=== PATIENT | male | born 1950 | race Caucasian/White ===

== ENCOUNTER 2017-05-29 07:44 | Emergency (ER) | payer OTHER ==
[2017-05-29 07:53] VITALS: BP 138/83
[2017-05-29 13:00] LABS: Hematocrit 44 % (42-52); Hemoglobin 14.9 g/dl (14.0-18.0); Mean Corpuscular HGB Conc 34 g/dl (31-36); Mean Corpuscular Hemoglobin 30 pg (27-31); Mean Corpuscular Volume 89 fL (80-94); Mean Platelet Volume 8 um3 (7.4-10.4); Red Blood Count 4.97 10^6/ul (4.0-5.4); Red Cell Distribution Width 13 % (10.5-15); White Blood Count 11.9 10^3/ul (3.5-10.8)
--- NOTE | 2017-05-29 13:33 | UC ---
Camden Proctor Alfonso, scribed for Van Vargas MD on 05/29/17 at 0820 . HPI Febrile Illness - HPI Summary HPI Summary: This patient is a 66 year old male presenting to [facility] c/o febrile illness since 5 days ago. He rates the pain 5/10 in severity. Sx aggravated and alleviated by nothing. Reports low grade fevers and aches. Denies diaphoresis, urinary symptoms, coughing, wheezing, rhinorrhea, swollen joint, rash, swelling, vomiting, and diarrhea. Reports playing golf 5 days ago. Denies sick contacts or recent travel. Denies recent dental procedures and surgeries. PMHx of HLD. - History of Current Complaint Chief Complaint: UCGeneralIllness Time Seen by Provider: 05/29/17 08:05 Hx Obtained From: Patient Onset/Duration: Started Days Ago - 5 days ago Timing: Constant Initial Severity: Moderate Current Severity: Moderate Pain Intensity: 5 Pain Scale Used: 0-10 Numeric Aggravating Factors: Nothing Alleviating Factors: Nothing Associated Signs and Symptoms: Other: - Reports low grade fevers and aches. Denies diaphoresis, urinary symptoms, respiratory, coughing, wheezing, rhinorrhea, swollen joint, rash, swelling, vomiting, and diarrhea. - Allergy/Home Medications Allergies/Adverse Reactions: Allergies Allergy/AdvReac Type Severity Reaction Status Date / Time No Known Allergies Allergy Verified 01/13/13 07:40 PMH/Surg Hx/FS Hx/Imm Hx Cardiovascular History: Reports: Hx Valvular Heart Disease - mitral valve prolapse wore monitor no treatment GI History: Reports: Hx Gastroesophageal Reflux Disease - meds prn usually qod Sensory History: Reports: Hx Contacts or Glasses - glasses inst day of or Denies: Hx Hearing Aid Opthamlomology History: Reports: Hx Contacts or Glasses - glasses inst day of or - Surgical History Surgery Procedure, Year, and Place: 1959 tonsilectomy [facility]. 1970 wisdom teeth off, hernia inguinal bilat repair Hx Anesthesia Reactions: No Infectious Disease History: No Infectious Disease History: Denies: Hx Clostridium Difficile, Hx Hepatitis, Hx Human Immunodeficiency Virus (HIV), Hx of Known/Suspected MRSA, Hx Shingles, Hx Tuberculosis, Hx Known/ Suspected VRE, Hx Known/Suspected VRSA, History Other Infectious Disease, Traveled Outside the [place] in Last 30 Days - Family History Known Family History: Positive: Other - Cancer father - Social History Alcohol Use: Rare Substance Use Type: Reports: None Smoking Status (MU): Never Smoked Tobacco Review of Systems Constitutional: Fever, Other - Positive aches; negative diaphoresis Skin: Other - Negative rash, swelling Respiratory: Other - Negative cough, wheezing, rhinorrhea Gastrointestinal: Other - Negative vomiting and diarrhea Genitourinary: Negative Motor: Other - Negative swollen joint All Other Systems Reviewed And Are Negative: Yes Physical Exam Triage Information Reviewed: Yes Vital Signs: Initial Vital Signs Temp 98 F 05/29/17 07:49 Pulse 72 05/29/17 07:49 Resp 18 05/29/17 07:49 BP 138/83 05/29/17 07:49 Pulse Ox 98 05/29/17 07:49 Vital Signs Reviewed: Yes - Additional Comments The patient is well-nourished in no acute distress and in no acute pain. The skin is warm and dry and skin color reflects adequate perfusion. No rash noted. HEENT: The head is normocephalic and atraumatic. The pupils are equal and reactive. The conjunctivae are clear and without drainage. Nares are patent and without drainage. Mouth reveals moist mucous membranes and the throat is without erythema and exudate. The external ears are intact. The ear canals are patent and without drainage. The tympanic membranes are intact. Neck is supple with full range of motion and non-tender. There are no carotid bruits. There is no neck vein distension. No adenopathy. Respiratory: Chest is non-tender. Lungs are clear to auscultation and breath sounds are symmetrical and equal. Cardiovascular: Heart is regular rate and rhythm. There is no murmur or rub auscultated. There is no peripheral edema and pulses are symmetrical and equal. Abdomen: The abdomen is obese. Musculoskeletal: There is no back pain noted. Extremities are non-tender with full range of motion. There is good capillary refill. There is no peripheral edema or calf tenderness elicited. Neurological: Patient is alert and oriented to person, place and time. Psychiatric: The patient has an appropriate affect and does not exhibit any anxiety or depression. Course/Dx - Course Course Of Treatment: A 66-year-old M presents to [facility] with a CC of febrile illness since 5 days ago. Pt reports low grade fevers and aches. Denies diaphoresis, urinary symptoms, coughing, wheezing, rhinorrhea, swollen joint, rash, swelling, vomiting, and diarrhea. Pt will be discharged home with Doxycycline and follow up with PCP. Pt is agreeable with this plan. - Febrile Illness Differential Diagnoses: Fever of Unknown Origin, Other: - lyme's disease, febrile illness - Diagnoses Clinic Provider Diagnoses: lyme's disease Discharge - Discharge Plan Condition: Stable Disposition: HOME Prescriptions: DOXYcycline CAP(*) [DOXYcycline 100MG CAP(*)] 100 mg PO BID #28 cap Patient Education Materials: Lyme Disease (ED), Fever in Adults (ED) Referrals: Reyes Villanueva MD [Primary Care Provider] - 1 Week The documentation as recorded by the Camden paniagua Alfonso accurately reflects the service I personally performed and the decisions made by , Van Vargas MD.
[2017-05-29 14:16] LABS: Erythrocyte Sed Rate 34 mm/Hr (0-40)
--- NOTE | 2017-05-30 16:51 | UC ---
Progress - Progress Note Progress Note: PLS NOTIFY PT - LYME NEGATIVE. CBC SLIGHTLY ELEVATED WBC LIKELY REACTIVE DUE TO ACUTE CONDITION. CRP ELEVATED. THIS IS A GENERALIZED MARKER OF INFLAMMATION. CONTINUE CURRENT MGMT AND FOLLOW-UP PCP ADVISED. - SMITA ALAN MD
== END 2017-05-29 08:35 | disposition home or self-care (01) ==
LOC: UCEAST 07:44
DX: R50.9 Fever, unspecified (principal); D72.829 Elevated white blood cell count, unspecified; R79.82 Elevated C-reactive protein (CRP); K21.9 Gastro-esophageal reflux disease without esophagitis
CPT/HCPCS: 36415; 85025; 85652; 86140; 86618; 99212; G0463

== ENCOUNTER 2018-04-07 06:26 | Inpatient (IN) | payer OTHER ==
--- NOTE | 2018-04-02 14:14 | HP ---
PREOPERATIVE HISTORY AND PHYSICAL: DATE OF ADMISSION: 04/07/18. PROVIDER: Rekha Gardner MD.* (DICTATED BY [facility]) CHIEF COMPLAINT: Left hip pain. HISTORY OF PRESENT ILLNESS: Mr. Hudson is a 67-year-old gentleman who has had increasingly worsening left hip pain over several months. It is an aching pain in his groin and thigh. It is worse with prolonged ambulation standing and stair- climbing. He has tried physical therapy, antiinflammatories, and rest without relief of pain. He is interested in surgical intervention for correction of the problem. PAST MEDICAL HISTORY: Hypercholesterolemia, osteoarthritis, mitral valve prolapse, and GERD. PAST SURGICAL HISTORY: Hernia repair, tonsillectomy, wisdom tooth extraction. He reports no complications with anesthesia with those procedures. FAMILY HISTORY: Breast cancer in his mother, hypertension in his mother and father. SOCIAL HISTORY: He lives with his . He works at [employer]. He denies tobacco or recreational drug use. Minimal alcohol use. He is normally very active. He is right hand dominant. He normally ambulates independently. CURRENT MEDICATIONS: 1. Mobic 7.5 mg p.o. daily. 2. Restasis 0.05% eye drops. 3. Ketoconazole 2% cream applied once a day to his scalp. 4. Zantac 75 mg daily. 5. Tamsulosin HCl daily. 6. Rosuvastatin. 7. Calcium 10 mg daily. 8. Multivitamin daily. ALLERGIES: No known drug allergies. REVIEW OF SYSTEMS: Constitutional: Negative for recent hospitalization, fever , chills, night sweats, unexplained weight loss. HEENT: Negative for headache , lightheadedness, changes to his vision or hearing, sore throat, runny nose, cough or cold. Cardiovascular: Negative for chest or arm pain with exertion, history of heart attack, heart murmur, heart palpitations, high blood pressure, embolism or deep vein thrombosis. Respiratory: Negative for chronic cough, shortness of breath with exertion, asthma, or COPD. Gastrointestinal: Negative for nausea, vomiting, diarrhea, constipation. Positive for GERD. Genitourinary: Negative for nighttime urination. Positive for frequent urination. Negative for urinary tract infection or kidney problems. Musculoskeletal: Negative for chronic back or neck pain. Skin: Negative for rashes, lesions, lumps or sores. Neurologic: Negative for seizures, stroke, epilepsy, depression. Endocrine: Negative for diabetes or thyroid problems. Hematology: Negative for easy bleeding, bruising, or anemia. PHYSICAL EXAMINATION GENERAL: He is a well-developed, well-nourished person, in no acute distress. He is alert and oriented x3 with appropriate mood and affect. VITAL SIGNS: The patient is 5 feet 9 inches, 215 pounds, blood pressure 144/84 , pulse of 88. HEENT: Normocephalic, atraumatic. His hearing and vision are grossly intact. NECK: Trachea is midline. RESPIRATORY: Lungs clear to auscultation bilaterally. No wheezes, rales or rhonchi. CARDIOVASCULAR: Regular rate and rhythm. No murmurs, rubs or gallops. Normal S1, S2. ABDOMEN: Soft, nondistended, nontender, normal bowel sounds. GAIT: He ambulates with an antalgic gait favoring the left lower extremity with no abductor alert. EXTREMITIES: Exam of the left lower extremity; skin is intact without abrasions or open wounds. He has no palpable masses or lymph nodes. He has hip flexion to 110 degrees. He has internal rotation to 10 degrees. External rotation to 45 degrees. No instability of the hip. Distally he has 5/5 ankle dorsiflexion, plantarflexion, and strength. Sensation to light touch in all nerve distributions and 2+ dorsalis pedis pulse. DIAGNOSIS STUDIES: Imaging: Multiple views of the left hip are reviewed on the PACS system and shows severe endstage osteoarthritis of the left hip joint. There is [id number] contact superiorly and medially, extensive osteophyte formation, and subchondral sclerosis. IMPRESSION: Left hip osteoarthritis. PLAN: The patient is to undergo left total hip arthroplasty by Dr. Gardner on . The risks, benefits and post-operative course was discussed with the patient at length and he would like to proceed. All of his questions were answered to his full satisfaction. He is understanding to call with any problems or concerns. COMFORT BAEZA [id number]/[facility] #: [id number] [facility]ITAL[facility]
[~2018-04-07 06:26] MED LIST: Buffered Lidocaine 0.9% SYRIN* 5 ML/SYR SYRINGE INTRADERM ONE; Dexamethasone TAB* 4 MG PO ONE; DiMENhydriNATE IV* 50 MG/ML VIAL IV PUSH PRN; Famotidine TAB* 20 MG PO ONE; Gabapentin CAP(*) 300 MG PO ONE; Morphine INJ* 2 MG/ML 1 ML CARPUJECT IV PRN; Naloxone* 0.4 MG/ML 1 ML VIAL IV PRN; Ondansetron INJ* 2 MG/ML VIAL ONE; PROCHLORPERAZINE INJ 5 MG/ML 2 ML VIAL IV PRN; Scopolamine 1.5 mg* PATCH TRANSDERM PRN; oxyCODONE/Acetamin 5/325 MG* TAB PO PRN
--- OUTSIDE RECORDS SUMMARY | 2018-04-07 06:35 | XMS REPORT ---
:1950 External Reference #:[id number] Author Organization [facility] Address [address] [place] [address] Phone [phone] Care Team Providers Name Role Phone Reyes Villanueva MD Care Team Information Life Skills Coordinator Volunteer Unavailable Reyes Villanueva MD Primary Care Physician Unavailable Payers Type Date Identification Numbers Payment Provider Subscriber Health Maintenance Policy Number: [facility] ([facility]) [id number] [employer] Group Number: [id number] [id number] PayID: [id number] [place] [address] Problems Date Description Provider Status Onset: 08/24/2011 Hyperlipidemia Reyes Villanueva M.D. Active Onset: 12/08/2012 Non-neoplastic nevus Reyes Villanueva M.D. Active Onset: 12/08/2012 Benign prostatic hypertrophy Reyes Villanueva M.D. Active without outflow obstruction Onset: 03/24/2018 Arthralgia of the pelvic region and Reyes Villanueva M.D. Active thigh Onset: 06/27/2017 Hemorrhage of rectum and anus Reyes Villanueva M.D. Active Onset: 12/08/2012 Inguinal hernia without obstruction Reyes Villanueva M.D. Inactive AND without gangrene Inactive: 06/27/2017 Onset: 06/05/2015 Arthralgia of the lower leg Reyes Villanueva M.D. Inactive Inactive: 06/27/2017 Onset: 11/27/2015 Mixed hyperlipidemia Reyes Villanueva M.D. Inactive Inactive: 06/27/2017 Onset: 11/27/2015 Gastroesophageal reflux disease Reyes Villanueva M.D. Inactive Inactive: 06/27/2017 Onset: 11/27/2015 Wrist joint pain Reyes Villanueva M.D. Inactive Inactive: 06/27/2017 Onset: 06/06/2017 Lyme disease Reyes Villanueva M.D. Inactive Inactive: 06/27/2017 Family History Date Family Member(s) Problem(s) Comments Father Skin Cancer Mother Arthritis Social History Type Date Description Comments Marital Status Patient is Cigarette Use Never Smoked Cigarettes ETOH Use Rarely consumes alcohol Smoking Patient has never smoked Daily Caffeine Some Caffeine chocolate qod Exercise Type/Frequency Current Does not exercise currently Allergies, Adverse Reactions, Alerts Date Description Reaction Status Severity Comments 08/25/2011 NKDA active 06/06/2017 Mussels nausea, vomitting active Medications Medication Date Status Form Strength Qnty SIG Indications Ordering Provider Rosuvastatin 06/27 Active Tablets 10mg 90tab 1 by mouth Reyes FDevin Calcium s every day Emily Villanueva Zantac 75 Active Tablets 75mg 1 po bid, prn Reyes F. /0000 Emily Villanueva Fish Oil Active Capsules 1000mg 2 by mouth Reyes F. Concentrate / twice a day Emily Villanueva Ketoconazole Active Shampoo 2% apply to Reyes F. /0000 affected Shallish, area, wait M.D. 3-5 min and rinse, use 3x weekly Multi Vitamin Active Tablets 1 by mouth Reyes F. Mens /0000 every day for Shallish, delivery M.DDevin Restasis Active Emulsion 0.05% instill 1 Reyes F. /0000 drop in each Shallish, eye twice a M.D. day Glucosamine Active Capsules 1500Com once daily Unknown Chondroitin / 1500 Complex Tamsulosin HCL Active Capsules 0.4mg 1 by mouth Unknown /0000 every day Meloxicam Active Tablets 7.5mg 1 by mouth Unknown /0000 every day for pain and inflamation take with food. Doxycycline 05/30 Hx Tablets 100mg 1 by mouth Unknown Hycl DR twice a day x - 2 weeks 06/24 Physical 06/05 Hx treatment and Reyes FDevin Therapy /2014 evaluation David Villanueva left knee M.DDevin 10/27 Simvastatin 04/04 Hx Tablets 20mg 90tab 1 by mouth Reyes F. s every day David Villanueva M.D. 06/27 Oracea 12/09 Hx Capsules 40mg Take [address] capsule by Rich, - mouth daily M.D. 02/10 in the morning on an empty stomach for inflammatory lesions of acne rosacea Simvastatin 06/05 Hx Tablets 10mg 90tab take 1 tablet Reyes F. s by mouth at Rich, - bedtime M.D. 04/04 Lovaza 06/07 Hx Capsules 1gm 360ca 2 po bid Reyes F. ps Rich, - M.DDevin 02/10 Azithromycin 11/30 Hx Tablets 250mg 6tabs take 2 Reyes . tablets by Rich, - mouth on day M.D. 03/29 1 then tablet on days 2 through 5 Zithromax 04/19 Hx Tablets 250mg 6Tabs 2 po qd today 466.0 , then 1 po Alexa, - qd times 4 Afnp-C 04/24 Tessalon 04/19 Hx Capsules 200mg 30cap 1 tid prn 466.0 s nathanael Liu, - Charlenenp-C 04/29 Evelyn D 12H 09/26 Hx 30uni 1 po bid prn Reyes . ts David Villanueva M.D. 04/19 Prilosec 09/26 Hx Capsules 20mg 30cap [address] maria dolores Levi, - Afnp-C 04/19 Zantac 03/10 Hx Capsules 75 [facility] 06/27 Of Zocor 11/21 Hx Tablets 10mg 90tab 1 po qhs Reyes F. /2006 s David Villanueva M.D. 06/05 Evelyn 07/21 Hx Capsules 180mg 30cap 1 PO qd Reyes F. /2006 s David Villanueva M.D. 04/19 Nasonex 07/21 Hx 50mcg 1unit 2 Sprays Each Reyes FDevin s Nostril qd David Villanueva M.D. 11/30 Medrol 07/05 Hx 4mg 1unit as Directed Reyes [place] Dosepack /2004 David Brooks M.D. 07/21 Norflex 06/12 Hx Tablets 100mg 30tab 1 PO bid Ruddy ADevin /2004 s David Galicia M.D. 06/22 Naprosyn 06/12 Hx Tablets 500mg 30tab 1 bid With Ruddy ADevin /2004 s David Florez M.D. 07/21 Physical 06/12 Hx Treatment And Ruddy ADevin Therapy /2004 Evaluation David Galicia Low Back Pain Emily 06/24 Physical 02/15 Hx For Low Back Reyes Bridgette Therapy /2001 Pain David Villanueva M.D. 06/12 "Treat Your 02/15 Hx by bill Talbot. Own Back" David Drew M.D. 06/12 Physical 01/05 Hx Treatment And Reyes FDevin Therapy /2001 Evaluation Of David Villanueva M.D. 02/15 Pain /2001 Tylenol #3 11/02 Hx #3 20uni 1 PO Q4H prn Reyes F. /2000 David Toro M.D. 02/15 Motrin 10/28 Hx 800mg 60uni 1 PO tid prn Reyes F. /2000 David Toro M.D. 02/15 Physical 10/28 Hx Treatment And Reyes FDevin Therapy /2000 Evaluation David Villanueva M.D. 10/29 Neck Pain /2000 Evelyn D 12H 00/00 Hx 10uni 1 po bid prn Unknown /0000 ts - 11/30 Meloxicam Hx Tablets 7.5mg Once per day Unknown /0000 - 06/05 Immunizations CPT Code Status Date Vaccine Reaction Lot # [id number] Given 06/27/2017 Pneumococcal Immunization [id number] Given 11/27/2015 Pneumococcal Conjugate Vacc-13 [id number] Given 08/24/2015 Influenza Vac, Quadriv[place], [place] [id number] Given 03/29/2011 Zostivax [id number] Given 03/29/2011 Zostivax jacques [id number] Given 08/08/2010 Tdap Tetanus, W Pertussis [id number] Vital Signs Date Vital Result Comment 03/24/2018 BP Systolic 130 mmHg BP Diastolic 70 mmHg Heart Rate 64 /min Body Temperature 98.7 F Respiratory Rate 16 /min Height 69.50 inches 5'9.50" Weight 214.00 lb BMI (Body Mass Index) 31.1 kg/m2 06/27/2017 BP Systolic 138 mmHg BP Diastolic 78 mmHg Heart Rate 64 /min Body Temperature 99.0 F Height 69.50 inches 5'9.50" Weight 216.50 lb BMI (Body Mass Index) 31.5 kg/m2 06/06/2017 BP Systolic 130 mmHg BP Diastolic 72 mmHg Heart Rate 78 /min Body Temperature 98.6 F Height 68.25 inches 5'8.25" Weight 214.12 lb BMI (Body Mass Index) 32.3 kg/m2 11/27/2015 BP Systolic 124 mmHg BP Diastolic 72 mmHg Heart Rate 76 /min Body Temperature 98.4 F Respiratory Rate 16 /min Height 68.25 inches 5'8.25" Weight 212.00 lb BMI (Body Mass Index) 32.0 kg/m2 10/27/2015 BP Systolic 140 mmHg BP Diastolic 70 mmHg Heart Rate 60 /min Body Temperature 97.4 F Respiratory Rate 12 /min Height 69.5 inches 5'9.50" Weight 215.00 lb BMI (Body Mass Index) 31.3 kg/m2 06/05/2015 BP Systolic 130 mmHg BP Diastolic 60 mmHg Heart Rate 76 /min Body Temperature 97.7 F Respiratory Rate 16 /min Height 69.5 inches 5'9.50" Weight 214.00 lb BMI (Body Mass Index) 31.1 kg/m2 02/10/2015 BP Systolic 142 mmHg BP Diastolic 80 mmHg Heart Rate 74 /min Body Temperature 97.3 F Respiratory Rate 16 /min Height 69.5 inches 5'9.50" Weight 214.00 lb BMI (Body Mass Index) 31.1 kg/m2 04/04/2014 BP Systolic 118 mmHg BP Diastolic 68 mmHg Heart Rate 60 /min Body Temperature 97.5 F Respiratory Rate 16 /min Height 69.5 inches 5'9.50" Weight 208.00 lb BMI (Body Mass Index) 30.3 kg/m2 12/08/2012 BP Systolic 122 mmHg BP Diastolic 62 mmHg Heart Rate 68 /min Body Temperature 98.3 F Respiratory Rate 16 /min Height 69.5 inches 5'9.50" Weight 215.12 lb BMI (Body Mass Index) 31.3 kg/m2 06/07/2011 BP Systolic 140 mmHg BP Diastolic 80 mmHg Heart Rate 80 /min Body Temperature 98.2 F Respiratory Rate 16 /min Height 69.5 inches 5'9.50" Weight 227.00 lb BMI (Body Mass Index) 33.0 kg/m2 03/29/2011 BP Systolic 116 mmHg BP Diastolic 70 mmHg Heart Rate 60 /min Body Temperature 98.7 F Respiratory Rate 16 /min Height 69.5 inches 5'9.50" Weight 224.00 lb BMI (Body Mass Index) 32.6 kg/m2 11/30/2010 BP Systolic 118 mmHg BP Diastolic 60 mmHg Heart Rate 80 /min Body Temperature 97.9 F Height 69.5 inches 5'9.50" Weight 228.00 lb BMI (Body Mass Index) 33.2 kg/m2 07/16/2010 BP Systolic 120 mmHg BP Diastolic 82 mmHg Heart Rate 60 /min Body Temperature 97.9 F Height 69.5 inches 5'9.50" Weight 219.00 lb BMI (Body Mass Index) 31.9 kg/m2 06/27/2009 BP Systolic 124 mmHg BP Diastolic 70 mmHg Heart Rate 68 /min Body Temperature 97.9 F Height 69.5 inches 5'9.50" Weight 213.00 lb BMI (Body Mass Index) 31.0 kg/m2 04/19/2009 BP Systolic 128 mmHg BP Diastolic 70 mmHg Heart Rate 88 /min Body Temperature 98.6 F Weight 211.00 lb 01/23/2009 BP Systolic 140 mmHg BP Diastolic 70 mmHg Heart Rate 72 /min Height 69.5 inches 5'9.50" Weight 212.00 lb BMI (Body Mass Index) 30.9 kg/m2 09/26/2008 BP Systolic 128 mmHg BP Diastolic 60 mmHg Heart Rate 72 /min Body Temperature 98.2 F Height 69.5 inches 5'9.50" Weight 212.00 lb BMI (Body Mass Index) 30.9 kg/m2 03/10/2008 BP Systolic 130 mmHg BP Diastolic 54 mmHg Heart Rate 80 /min Height 69.5 inches 5'9.50" Weight 211.00 lb BMI (Body Mass Index) 30.7 kg/m2 11/05/2007 BP Systolic 124 mmHg BP Diastolic 60 mmHg Heart Rate 80 /min Body Temperature 98.1 F Height 69.5 inches 5'9.50" Weight 211.00 lb BMI (Body Mass Index) 30.7 kg/m2 07/21/2007 BP Systolic 124 mmHg BP Diastolic 70 mmHg Heart Rate 72 /min Body Temperature 98.6 F Height 69.5 inches 5'9.50" Weight 214.00 lb BMI (Body Mass Index) 31.1 kg/m2 07/05/2005 BP Systolic 126 mmHg BP Diastolic 78 mmHg Heart Rate 88 /min Respiratory Rate 15 /min Height 69.5 inches 5'9.50" 06/12/2005 BP Systolic 134 mmHg BP Diastolic 82 mmHg Heart Rate 72 /min Respiratory Rate 16 /min Height 69.5 inches 5'9.50" Weight 208.00 lb BMI (Body Mass Index) 30.3 kg/m2 02/15/2002 BP Systolic 124 mmHg BP Diastolic 74 mmHg Height 69.5 inches 5'9.50" Weight 196.00 lb BMI (Body Mass Index) 28.9 kg/m2 11/02/2001 BP Systolic 120 mmHg BP Diastolic 70 mmHg Height 69.5 inches 5'9.50" Weight 194.00 lb BMI (Body Mass Index) 28.6 kg/m2 10/28/2001 BP Systolic 110 mmHg LG Cuff BP Diastolic 76 mmHg LG Cuff Body Temperature 97.7 F Height 69.5 inches 5'9.50" Weight 195.00 lb BMI (Body Mass Index) 28.8 kg/m2 Results Test Date Test Result H/L Range Note Lipid Profile 08/27/2017 Cholesterol 168 mg/dL 120-200 Triglycerides 55 mg/dL 30-200 HDL Cholesterol 63 mg/dL 30-70 LDL (Calculated) 94 CALC 0-129 VLDL Cholesterol 11 mg/dL 0-50 HDL Risk Factor 2.7 CALC 0.0-4.4 Laboratory test finding 08/27/2017 CK 85 U/L 38-174 1 Comprehensive Metabolic Prof 08/27/2017 Sodium 143 mEq/L 134-149 Potassium 4.4 mEq/L 3.6-5.5 Chloride 106 mEq/L 94-112 Carbon Dioxide 23 mEq/L 21-32 Glucose 109 mg/dL High 70-105 2 BUN 19 mg/dL 6-26 Creatinine 1.0 mg/dL 0.6-1.4 BUN/Creat Ratio 19.0 CALC 8.0-36.0 Calcium 9.5 mg/dL 8.6-10.2 Total Protein 6.5 g/dL 6.4-8.3 Albumin 4.1 g/dL 3.8-5.5 Globulin 2.4 g/dL 2.0-4.8 A/G Ratio 1.7 CALC 0.6-2.3 Alk. Phosphatase 60 U/L 22-95 Alt (SGPT) 17 U/L 7-35 Ast (Sgot) 21 U/L 5-34 Total Bilirubin 0.7 mg/dL 0.2-1.3 GFR Non- >60 ml/min/1.73m^ >=60 GFR >60 ml/min/1.73m^ >=60 Laboratory test finding 08/27/2017 TSH 1.63 mIU/L 0.50-6.00 Ict Hemoccult (a) 08/20/2017 Ict Hemoccult (1) 08/05/17 neg Ict Hemoccult-(2) 08/06/17 neg Ict-Hemoccult (3) 08/07/17 neg Ua - Non Micro (a) 06/27/2017 Appearance clear Color yellow Glucose, Urine (Fma/CMC/CTX) neg Bilirubin neg Ketones neg SP Grav >1.030 Blood neg PH 6.0 Protein neg Urobil 0.2 Nitrite neg Leukocytes (a/[facility]) neg Laboratory test finding 05/29/2017 C Reactive Protein 29.83 mg/L High &lt ; 5.00 3 CBC Auto Diff 05/29/2017 White Blood Count 11.9 10^3/uL High 3.5-10.8 Red Blood Count 4.97 10^6/uL 4.0-5.4 Hemoglobin 14.9 g/dL 14.0-18.0 Hematocrit 44 % 42-52 Mean Corpuscular Volume 89 fL 80-94 Mean Corpuscular Hemoglobin 30 pg 27-31 Mean Corpuscular HGB Conc 34 g/dL 31-36 Red Cell Distribution Width 13 % 10.5-15 Platelet Count 297 10^3/uL 150-450 Mean Platelet Volume 8 um3 7.4-10.4 Abs Neutrophils 8.8 10^3/uL High 1.5-7.7 Abs Lymphocytes 1.4 10^3/uL 1.0-4.8 Abs Monocytes 0.8 10^3/uL 0-0.8 Abs Eosinophils 0.7 10^3/uL High 0-0.6 Abs Basophils 0.1 10^3/uL 0-0.2 Abs Nucleated RBC 0 10^3/uL Granulocyte % 74.3 % 38-83 Lymphocyte % 12.0 % Low 25-47 Monocyte % 6.7 % 1-9 Eosinophil % 5.9 % 0-6 Basophil % 1.1 % 0-2 Nucleated Red Blood Cells % 0 Laboratory test finding 05/29/2017 Erythrocyte Sed Rate 34 mm/Hr 0-40 Lyme Disease Serology Negative Negative 4 Laboratory test finding 03/03/2017 PSA 3.0 ng/mL 0.0-4.0 Complete Blood Count 03/03/2017 WBC 7.4 x10^3/UL 3.6-9.6 RBC 4.93 x10^6/UL 3.90-5.70 HGB 14.9 g/dL 12.1-17.2 HCT 44 % 36-50 MCV 90.0 fL 82.2-97.4 MCH 30.2 pg 27.6-33.3 MCHC 33.6 g/dL 33.0-35.5 RDW 13.7 % 11.6-13.7 PLT 497 x10^3/UL High 150-400 MPV 6.6 fL Low 7.4-10.4 Gran # 5.3 x10^3/UL 1.5-7.2 Lymph# 1.6 x10^3/UL 0.7-4.9 Gilpin# 0.5 x10^3/UL 0.1-0.9 Gran % 69.6 % 42.2-75.2 Lymph % 22.5 % 20.5-51.1 Gilpin% 7.9 % 1.7-9.3 Lipid Profile 03/03/2017 Cholesterol 167 mg/dL 120-200 Triglycerides 123 mg/dL 30-200 HDL Cholesterol 59 mg/dL 30-70 LDL (Calculated) 83 CALC 0-129 VLDL Cholesterol 25 mg/dL 0-50 HDL Risk Factor 2.8 CALC 0.0-4.4 Comprehensive Metabolic Prof 03/03/2017 Sodium 141 mEq/L 134-149 Potassium 4.1 mEq/L 3.6-5.5 Chloride 104 mEq/L 94-112 Carbon Dioxide 28 mEq/L 21-32 Glucose 116 mg/dL High 70-105 5 BUN 12 mg/dL 6-26 Creatinine 0.9 mg/dL 0.6-1.4 BUN/Creat Ratio 13.3 CALC 8.0-36.0 Calcium 8.7 mg/dL 8.6-10.2 Total Protein 6.1 g/dL Low 6.4-8.3 6 Albumin 3.9 g/dL 3.8-5.5 Globulin 2.2 g/dL 2.0-4.8 A/G Ratio 1.8 CALC 0.6-2.3 Alk. Phosphatase 57 U/L 22-95 Alt (SGPT) 21 U/L 7-35 Ast (Sgot) 20 U/L 5-34 Total Bilirubin 0.5 mg/dL 0.2-1.3 GFR Non- >60 ml/min/1.73m^ >=60 GFR >60 ml/min/1.73m^ >=60 Laboratory test finding 02/26/2016 PSA 2.8 ng/mL 0.0-4.0 Ict Hemoccult (Fma) 12/22/2015 Ict Hemoccult (1) 12/13/15 neg Ict Hemoccult-(2) 12/14/15 neg Ict-Hemoccult (3) 12/15/15 neg Lyme AB/Western Blot Reflex 11/27/2015 Lyme IgG/IgM Ab <0.91 ISR 0.00- 0.90 7, 8 Lyme Disease Ab, Quant, IgM <0.80 index 0.00-0.79 7, 9 Rheumatoid Arthritis 11/27/2015 Ra Latex Turbid. 8.8 IU/mL 0.0-13.9 7 Factor ([facility]) Laboratory test finding 11/27/2015 Sed Rate 9mm (Fma/CMC/[facility]) Laboratory test finding 11/27/2015 TSH 1.49 mIU/L 0.50-6.00 CK 85 U/L 38-174 Lipid Profile 11/27/2015 Cholesterol 187 mg/dL 120-200 Triglycerides 96 mg/dL 30-200 HDL Cholesterol 62 mg/dL 30-70 LDL (Calculated) 106 CALC 0-129 VLDL Cholesterol 19 mg/dL 0-50 HDL Risk Factor 3.0 CALC 0.0-4.4 Comprehensive Metabolic Prof 11/27/2015 Sodium 141 mEq/L 134-149 Potassium 4.2 mEq/L 3.6-5.5 Chloride 101 mEq/L 94-112 Carbon Dioxide 26 mEq/L 21-32 Glucose 89 mg/dL 70-105 BUN 21 mg/dL 6-26 Creatinine 1.0 mg/dL 0.6-1.4 BUN/Creat Ratio 21.0 CALC 8.0-36.0 Calcium 9.5 mg/dL 8.6-10.2 Total Protein 6.9 g/dL 6.4-8.3 Albumin 4.2 g/dL 3.8-5.5 Globulin 2.7 g/dL 2.0-4.8 A/G Ratio 1.6 CALC 0.6-2.3 Alk. Phosphatase 56 U/L 22-95 Alt (SGPT) 22 U/L 7-35 Ast (Sgot) 32 U/L 5-34 Total Bilirubin 0.6 mg/dL 0.2-1.3 GFR Non- >60 ml/min/1.73m^ >=60 GFR >60 ml/min/1.73m^ >=60 Complete Blood Count 11/27/2015 WBC 7.9 x10^3/UL 3.6-9.6 RBC 5.05 x10^6/UL 3.90-5.70 HGB 15.6 g/dL 12.1-17.2 HCT 47 % 36-50 MCV 92.0 fL 82.2-97.4 MCH 31.0 pg 27.6-33.3 MCHC 33.6 g/dL 33.0-35.5 RDW 12.9 % 11.6-13.7 PLT 251 x10^3/UL 150-400 MPV 7.0 fL Low 7.4-10.4 Gran # 5.8 x10^3/UL 1.5-7.2 Lymph# 1.7 x10^3/UL 0.7-4.9 Gilpin# 0.4 x10^3/UL 0.1-0.9 Gran % 72.0 % 42.2-75.2 Lymph % 22.2 % 20.5-51.1 Gilpin% 5.8 % 1.7-9.3 Laboratory test finding 11/27/2015 PSA 3.5 ng/mL 0.0-4.0 Lipid Profile 06/19/2015 Cholesterol 174 mg/dL 120-200 Triglycerides 63 mg/dL 30-200 HDL Cholesterol 62 mg/dL 30-70 LDL (Calculated) 99 CALC 0-129 VLDL Cholesterol 13 mg/dL 0-50 HDL Risk Factor 2.8 CALC 0.0-4.4 Comprehensive Metabolic Prof 06/19/2015 Sodium 139 mEq/L 134-149 Potassium 4.2 mEq/L 3.6-5.5 Chloride 102 mEq/L 94-112 Carbon Dioxide 29 mEq/L 21-32 Glucose 112 mg/dL High 70-105 10 BUN 14 mg/dL 6-26 Creatinine 1.0 mg/dL 0.6-1.4 BUN/Creat Ratio 14.0 CALC 8.0-36.0 Calcium 9.4 mg/dL 8.6-10.2 Total Protein 6.4 g/dL 6.4-8.3 Albumin 4.0 g/dL 3.8-5.5 Globulin 2.2 g/dL 2.0-4.8 A/G Ratio 1.7 CALC 0.6-2.3 Alk. Phosphatase 56 U/L 22-95 Alt (SGPT) 18 U/L 7-35 Ast (Sgot) 21 U/L 5-34 Total Bilirubin 0.4 mg/dL 0.2-1.3 Laboratory test finding 06/19/2015 TSH 1.19 mIU/L 0.50-6.00 CK 70 U/L 38-174 Complete Blood Count 06/19/2015 WBC 7.2 x10^3/UL 3.6-9.6 RBC 4.86 x10^6/UL 3.90-5.70 HGB 15.1 g/dL 12.1-17.2 HCT 44 % 36-50 MCV 91.0 fL 82.2-97.4 MCH 31.0 pg 27.6-33.3 MCHC 34.3 g/dL 33.0-35.5 RDW 13.5 % 11.6-13.7 PLT 251 x10^3/UL 150-400 MPV 6.7 fL Low 7.4-10.4 Gran # 5.0 x10^3/UL 1.5-7.2 Lymph# 1.6 x10^3/UL 0.7-4.9 Gilpin# 0.6 x10^3/UL 0.1-0.9 Gran % 68.6 % 42.2-75.2 Lymph % 23.0 % 20.5-51.1 Gilpin% 8.4 % 1.7-9.3 Lipid Profile 02/16/2015 Cholesterol 183 mg/dL 120-200 Triglycerides 78 mg/dL 30-200 HDL Cholesterol 64 mg/dL 30-70 LDL (Calculated) 103 CALC 0-129 VLDL Cholesterol 16 mg/dL 0-50 HDL Risk Factor 2.9 CALC 0.0-4.4 Comprehensive Metabolic Prof 02/16/2015 Sodium 141 mEq/L 134-149 Potassium 4.3 mEq/L 3.6-5.5 Chloride 102 mEq/L 94-112 Carbon Dioxide 31 mEq/L 21-32 Glucose 112 mg/dL High 70-105 BUN 15 mg/dL 6-26 Creatinine 0.9 mg/dL 0.6-1.4 BUN/Creat Ratio 16.7 CALC 8.0-36.0 Calcium 9.0 mg/dL 8.6-10.2 Total Protein 6.6 g/dL 6.4-8.3 Albumin 4.3 g/dL 3.8-5.5 Globulin 2.3 g/dL 2.0-4.8 A/G Ratio 1.9 CALC 0.6-2.3 Alk. Phosphatase 61 U/L 22-95 Alt (SGPT) 27 U/L 7-35 Ast (Sgot) 33 U/L 5-34 Total Bilirubin 0.5 mg/dL 0.2-1.3 Complete Blood Count 02/16/2015 WBC 7.7 x10^3/UL 3.6-9.6 RBC 4.89 x10^6/UL 3.90-5.70 HGB 15.6 g/dL 12.1-17.2 HCT 45 % 36-50 MCV 92.0 fL 82.2-97.4 MCH 31.9 pg 27.6-33.3 MCHC 34.7 g/dL 33.0-35.5 RDW 12.1 % 11.6-13.7 PLT 248 x10^3/UL 150-400 MPV 7.0 fL Low 7.4-10.4 Gran # 5.6 x10^3/UL 1.5-7.2 Lymph# 1.7 x10^3/UL 0.7-4.9 Gilpin# 0.4 x10^3/UL 0.1-0.9 Gran % 70.9 % 42.2-75.2 Lymph % 22.8 % 20.5-51.1 Gilpin% 6.3 % 1.7-9.3 Laboratory test finding 02/16/2015 TSH 1.48 mIU/L 0.50-6.00 11 PSA 2.1 ng/mL 0.0-4.0 Free T4 1.10 ng/dL 0.75-1.54 Laboratory test finding 01/30/2015 PSA 2.2 ng/mL 0.0-4.0 Lipid Profile 06/06/2014 Cholesterol 184 mg/dL 120-200 Triglycerides 52 mg/dL 30-200 HDL Cholesterol 59 mg/dL 30-70 LDL (Calculated) 115 CALC 0-129 VLDL Cholesterol 10 mg/dL 0-50 HDL Risk Factor 3.1 CALC 0.0-4.4 Comprehensive Metabolic Prof 06/06/2014 Sodium 138 mEq/L 134-149 Potassium 4.1 mEq/L 3.6-5.5 Chloride 104 mEq/L 94-112 Carbon Dioxide 24 mEq/L 21-32 Glucose 104 mg/dL 70-105 BUN 18 mg/dL 6-26 Creatinine 1.1 mg/dL 0.6-1.4 BUN/Creat Ratio 16.4 CALC 8.0-36.0 Calcium 9.4 mg/dL 8.6-10.2 Total Protein 6.9 g/dL 6.3-8.1 Albumin 4.3 g/dL 3.8-5.5 Globulin 2.6 g/dL 2.0-4.8 A/G Ratio 1.7 CALC 0.6-2.3 Alk. Phosphatase 65 U/L 22-95 Alt (SGPT) 22 U/L 7-35 Ast (Sgot) 14 U/L 5-34 Total Bilirubin 0.5 mg/dL 0.2-1.3 Laboratory test finding 06/06/2014 TSH 1.62 mIU/L 0.50-6.00 CK 114 U/L 38-174 Complete Blood Count 06/06/2014 WBC 7.6 x10^3/UL 3.6-9.6 RBC 4.87 x10^6/UL 3.90-5.70 HGB 15.3 g/dL 12.1-17.2 HCT 44 % 36-50 MCV 91.0 fL 82.2-97.4 MCH 31.4 pg 27.6-33.3 MCHC 34.6 g/dL 33.0-35.5 RDW 11.7 % 11.6-13.7 PLT 261 x10^3/UL 150-400 MPV 7.3 fL Low 7.4-10.4 Gran # 5.1 x10^3/UL 1.5-7.2 Lymph# 1.9 x10^3/UL 0.7-4.9 Gilpin# 0.6 x10^3/UL 0.1-0.9 Gran % 66.7 % 42.2-75.2 Lymph % 25.2 % 20.5-51.1 Gilpin% 8.1 % 1.7-9.3 Ua - Non Micro (a) 04/04/2014 Appearance CLEAR Color YELLOW Glucose NEG Bilirubin NEG Ketones NEG SP Grav 1.020 Blood NEG PH 5.5 Protein NEG Urobil 0.2 Nitrite NEG Leukocytes (a/[facility]) NEG Lipid Profile 12/15/2013 Cholesterol 188 mg/dL 120-200 HDL 58 mg/dL 30-70 Triglycerides 74 mg/dL 30-200 HDL Risk Factor 3.3 CALC 0.0-4.4 LDL (Calculated) 115 CALC 0-129 VLDL (Calculated) 15 mg/dL 0-50 Comprehensive Metabolic Prof 12/15/2013 Albumin 4.3 g/dL 3.8-5.5 Alk. Phos. 68 U/L 22-95 Alt (SGPT) 25 U/L 10-40 Ast (Sgot) 24 U/L 5-34 BUN 19 mg/dL 6-26 Calcium 9.0 mg/dL 8.6-10.2 Chloride 100 mEq/L 94-112 Creatinine 1.1 mg/dL 0.6-1.4 Carbon Dioxide 28 mEq/L 21-32 Glucose 105 mg/dL 70-105 Sodium 138 mEq/L 134-149 Total Bilirubin 0.3 mg/dL 0.2-1.3 Total Protein 6.6 g/dL 6.3-8.1 Potassium 4.3 mEq/L 3.6-5.5 Globulin 2.2 g/dL 2.0-4.8 A/G Ratio 1.9 Calc 0.6-2.3 BUN/Creat Ratio 17.1 Calc 8.0-36.0 Laboratory test finding 12/15/2013 TSH 2.58 mIU/L 0.50-6.00 Creatine Kinase 90 U/L 38-174 PSA 2.52 ng/mL 0.00-4.00 CBC Electronic ([facility]) 12/15/2013 WBC 7.5 3.6-9.6 RBC 5.05 3.90-5.70 Hemoglobin (Fma/CMC/CTX) 15.7 g/dL 12.1 - 17.2 Hematocrit (Fma/CMC/CTX) 46.0 % 36.1 - 50.3 Platelets 251 10^3/ul 150-400 Lymph% 24.6 % 17.0-48.0 Mixed% 9.0 Neutrophils % 66.4 Mean Corpuscular Vol 91 82.2-97.4 Mean Corpuscular Hemoglobin 31.0 27.6-33.3 Mean Corpuscular Hemo Concen 34.1 32.0-36.0 RDW 11.5 Low 11.6-13.7 Mean Platelet Volume 6.6 6.5-11.0 Ua - Micro ([facility]) 12/15/2013 Appearance CLEAR Color YELLOW Glucose NEG Bilirubin INVALID Ketones NEG SP Grav >=1.030 Blood TRACE-INTACT PH 5.5 Protein NEG Urobil 0.2 Nitrite NEG Leukocytes (a/CMC/[facility]) NEG Hyaline - /Lpf Granular - /Lpf WBC ([facility]) - RBC 0-1 Mucus MOD AMT /Lpf Epith - /Lpf Bacteria - /Hpf Amorphous - /Lpf Crystals, Fluid (Fma/CMC/CTX) - Z#Comments - CBC Electronic ([facility]) 01/26/2013 WBC 8.1 3.6-9.6 RBC 5.03 3.90-5.70 Hemoglobin (Fma/CMC/CTX) 15.2 g/dL 12.1 - 17.2 Hematocrit (Fma/CMC/CTX) 45.4 % 36.1 - 50.3 Platelets 289 10^3/ul 150-400 Lymph% 17.7 Low 20.5-51.1 Mixed% 7.0 Neutrophils % 75.3 Mean Corpuscular Vol 90 82.2-97.4 Mean Corpuscular Hemoglobin 30.2 27.6-33.3 Mean Corpuscular Hemo Concen 33.4 32.0-36.0 RDW 11.1 Low 11.6-13.7 Mean Platelet Volume 6.6 6.5-11.0 Ict Hemoccult (a) 01/01/2013 Ict Hemoccult (1) neg Ict Hemoccult-(2) neg Ict-Hemoccult (3) neg Lipid Profile 12/09/2012 Cholesterol 169 mg/dL 120-200 HDL 61 mg/dL 30-70 Triglycerides 72 mg/dL 30-200 HDL Risk Factor 2.8 CALC 0.0-4.4 LDL (Calculated) 93 CALC 0-129 VLDL (Calculated) 14 mg/dL 0-50 Comprehensive Metabolic Prof 12/09/2012 Albumin 4.4 g/dL 3.8-5.5 Alk. Phos. 65 U/L 22-95 Alt (SGPT) 19 U/L 10-40 Ast (Sgot) 18 U/L 5-34 BUN 16 mg/dL 6-26 Calcium 9.2 mg/dL 8.6-10.2 Chloride 102 mEq/L 94-112 Creatinine 1.1 mg/dL 0.6-1.4 Carbon Dioxide 25 mEq/L 21-32 Glucose 103 mg/dL 70-105 Sodium 138 mEq/L 134-149 Total Bilirubin 0.6 mg/dL 0.2-1.3 Total Protein 6.6 g/dL 6.3-8.1 Potassium 4.4 mEq/L 3.6-5.5 Globulin 2.2 g/dL 2.0-4.8 A/G Ratio 2.0 Calc 0.6-2.3 BUN/Creat Ratio 14.8 Calc 8.0-36.0 Laboratory test finding 12/09/2012 TSH 0.62 mIU/L 0.50-6.00 Creatine Kinase 62 U/L 38-174 PSA 2.40 ng/mL 0.00-4.00 CBC Electronic ([facility]) 12/09/2012 WBC 10.1 High 3.6-9.6 12 RBC 4.87 3.90-5.70 Hemoglobin (Fma/CMC/CTX) 15.1 g/dL 12.1 - 17.2 Hematocrit (Fma/CMC/CTX) 43.8 % 36.1 - 50.3 Platelets 239 10^3/ul 150-400 Lymph% 17.1 Low 20.5-51.1 Mixed% 9.1 Neutrophils % 73.8 Mean Corpuscular Vol 90 82.2-97.4 Mean Corpuscular Hemoglobin 31.1 27.6-33.3 Mean Corpuscular Hemo Concen 34.6 32.0-36.0 RDW 11.0 Low 11.6-13.7 Mean Platelet Volume 6.8 6.5-11.0 Ua - Non Micro ([facility]) 12/08/2012 Appearance clear Color yellow Glucose, Urine (a/CMC/CTX) - Bilirubin - Ketones - SP Grav >=1.030 Blood - PH 5.5 Protein - Urobil 0.2 Nitrite - Leukocytes ([facility] [place]/[facility]) - PSA Total & % Free 12/02/2011 Prostate Specific Ag, 2.9 ng/mL 0.0- 4.0 13 Ser Monitor Serum PSA, Free 0.48 ng/mL N/A 14 % Free PSA 16.6 % 15 Ict Hemoccult ([facility]) 08/01/2011 Ict Hemoccult (1) neg Ict Hemoccult-(2) neg Ict-Hemoccult (3) neg CBC Electronic ([facility]) 06/07/2011 WBC 8.0 3.6-9.6 RBC 5.12 3.90-5.70 Hemoglobin (a/CMC/CTX) 15.7 g/dL 12.1 - 17.2 Hematocrit (a/CMC/CTX) 45.4 % 36.1 - 50.3 Platelets 253 10^3/ul 150-400 Lymph% 16.8 Low 20.5-51.1 Mixed% 5.2 Neutrophils % 78.0 Mean Corpuscular Vol 89 82.2-97.4 Mean Corpuscular Hemoglobin 30.7 27.6-33.3 Mean Corpuscular Hemo Concen 34.6 32.0-36.0 RDW 12.2 11.6-13.7 Mean Platelet Volume 7.4 6.5-11.0 Lipid Profile 06/07/2011 Cholesterol 180 mg/dL 120-200 HDL 56 mg/dL 30-70 Triglycerides 80 mg/dL 30-200 HDL Risk Factor 3.2 CALC 0.0-4.0 LDL (Calculated) 108 CALC 0-129 VLDL (Calculated) 16 mg/dL 0-50 Comprehensive Metabolic Prof 06/07/2011 Albumin 4.5 g/dL 3.8-5.5 Alk. Phos. 76 U/L 22-95 Alt (SGPT) 21 U/L 10-40 Ast (Sgot) 21 U/L 5-34 BUN 19 mg/dL 6-26 Calcium 9.1 mg/dL 8.6-10.2 Chloride 101 mEq/L 94-112 Creatinine 1.1 mg/dL 0.6-1.4 Carbon Dioxide 27 mEq/L 21-32 Glucose 99 mg/dL 70-105 Sodium 142 mEq/L 134-149 Total Bilirubin 0.4 mg/dL 0.2-1.3 Total Protein 6.8 g/dL 6.3-8.1 Potassium 4.5 mEq/L 3.6-5.5 Globulin 2.2 g/dL 2.0-4.8 A/G Ratio 2.0 Calc 0.6-2.2 BUN/Creat Ratio 17.7 Calc 8.0-36.0 Laboratory test finding 06/07/2011 TSH 2.13 mIU/L 0.50-6.00 Creatine Kinase 100 U/L 38-174 PSA 4.30 ng/mL High 0.00-4.00 16 Laboratory test finding 11/30/2010 Quickstrep NEGATIVE Negative Laboratory test finding 09/24/2010 PSA 2.10 ng/mL 0.00-4.00 17 Ict Hemoccult (Fma) 08/14/2010 Ict Hemoccult (1) NEG Ict Hemoccult-(2) NEG Ict-Hemoccult (3) NEG Lipid Profile 07/19/2010 Cholesterol 184 mg/dL 120-200 HDL 51 mg/dL 30-70 Triglycerides 128 mg/dL 30-200 HDL Risk Factor 3.6 CALC Low 4.2-7.0 LDL (Calculated) 108 CALC 0-129 VLDL (Calculated) 26 mg/dL 0-50 Comprehensive Metabolic Prof 07/19/2010 Albumin 4.2 g/dL 3.8-5.5 Alk. Phos. 70 U/L 22-95 Alt (SGPT) 18 U/L 10-40 Ast (Sgot) 17 U/L 5-34 BUN 17 mg/dL 6-26 Calcium 8.9 mg/dL 8.6-10.2 Chloride 101 mEq/L 94-112 Creatinine 1.0 mg/dL 0.6-1.4 Carbon Dioxide 26 mEq/L 21-32 Glucose 95 mg/dL 70-105 Sodium 142 mEq/L 134-149 Total Bilirubin 0.6 mg/dL 0.2-1.3 Total Protein 6.3 g/dL 6.3-8.1 Potassium 4.5 mEq/L 3.6-5.5 Globulin 2.1 g/dL 2.0-4.8 A/G Ratio 2.0 Calc 0.6-2.2 BUN/Creat Ratio 16.5 Calc 8.0-36.0 Laboratory test finding 07/19/2010 TSH 0.98 mIU/L 0.50-6.00 Creatine Kinase 104 U/L 38-174 PSA 2.20 ng/mL 0.00-4.00 CBC (a) 07/19/2010 WBC 8.2 3.6-9.6 RBC 5.3 3.90-5.70 Hemoglobin (Fma/CMC/CTX) 15.5 g/dL 12.1 - 17.2 Hematocrit (Fma/CMC/CTX) 47.7 % 36.1 - 50.3 Mean Corpuscular Vol 90.0 82.2-97.4 Mean Corpuscular Hemaglobin 29.2 27.6-33.3 Mean Corpuscular Hemo Concen 32.5 Low 33.0-36.0 Platelets 292 10^3/ul 150-400 Lymph% 22.1 20.5-51.1 Mixed% 14.4 Neutrophils % 63.5 RDW 13.2 11.6-13.7 Mean Platelet Volume 10.8 High 7.4-10.4 Laboratory test finding 02/23/2010 PSA 2.50 ng/mL 0.00-4.00 Laboratory test finding 07/06/2009 PSA 2.80 ng/mL 0.00-4.00 18 Lipid Profile 07/06/2009 Cholesterol 176 mg/dL 120-200 18 HDL 47 mg/dL 30-70 18 Triglycerides 75 mg/dL 30-200 18 HDL Risk Factor 3.7 CALC Low 4.2-7.0 18 LDL (Calculated) 114 CALC 0-129 18 VLDL (Calculated) 15 mg/dL 0-50 18 Comprehensive Metabolic Prof 07/06/2009 Albumin 3.9 g/dL 3.8-5.5 18 Alk. Phos. 71 U/L 22-95 18 Alt (SGPT) 21 U/L 10-40 18 Ast (Sgot) 17 U/L 5-34 18 BUN 20 mg/dL 6-26 18 Calcium 9.7 mg/dL 8.6-10.2 18 Chloride 101 mEq/L 94-112 18 Creatinine 1.2 mg/dL 0.6-1.4 18 Carbon Dioxide 25 mEq/L 21-32 18 Glucose 102 mg/dL 70-105 18 Sodium 146 mEq/L 134-149 18 Total Bilirubin 0.4 mg/dL 0.2-1.3 18 Total Protein 6.3 g/dL 6.3-8.1 18 Potassium 4.2 mEq/L 3.6-5.5 18 Globulin 2.3 g/dL 2.0-4.8 18 A/G Ratio 1.7 Calc 0.6-2.2 18 BUN/Creat Ratio 16.2 Calc 8.0-36.0 18 Laboratory test finding 07/06/2009 TSH 0.94 mIU/L 0.50-6.00 18 Creatine Kinase 72 U/L 38-174 18 Ua - Non Micro (Fma) 07/06/2009 Appearance clear Color yellow Glucose, Urine (Fma/CMC/CTX) - Bilirubin - Ketones - SP Grav 1.025 Blood - PH 5.5 Protein - Urobil 0.2 Nitrite - Leukocytes (a/CMC/Centrex) - Ict Hemoccult (a) 10/12/2008 Ict Hemoccult (1) NEG Ict Hemoccult-(2) NEG Ict-Hemoccult (3) NEG Ua - Non Micro (Fma) 10/05/2008 Appearance CLEAR Color YELLOW Glucose, Urine (Fma/CMC/CTX) NEG Bilirubin NEG Ketones NEG SP Grav 1.025 Blood NEG PH 5.5 Protein NEG Urobil 0.2 Nitrite NEG Leukocytes (a/CMC/Centrex) NEG Laboratory test finding 10/05/2008 PSA 1.80 ng/mL 0.00-4.00 18 Lipid Profile 10/05/2008 Cholesterol 185 mg/dL 120-200 18 HDL 51 mg/dL 30-70 18 Triglycerides 93 mg/dL 30-200 18 HDL Risk Factor 3.6 CALC Low 4.2-7.0 18 LDL (Calculated) 115 CALC 0-129 18 VLDL (Calculated) 19 mg/dL 0-50 18 Comprehensive Metabolic Prof 10/05/2008 Albumin 4.3 g/dL 3.8-5.5 18 Alk. Phos. 60 U/L - 18 Alt (SGPT) 28 U/L 10-40 18 Ast (Sgot) 24 U/L 5-34 18 BUN 20 mg/dL 6-26 18 Calcium 9.0 mg/dL 8.6-10.2 18 Chloride 105 mEq/L 94-112 18 Creatinine 1.2 mg/dL 0.6-1.4 18 Carbon Dioxide 25 mEq/L 21-32 18 Glucose 109 mg/dL High 70-105 18 Sodium 140 mEq/L 134-149 18 Total Bilirubin 0.6 mg/dL 0.2-1.3 18 Total Protein 6.7 g/dL 6.3-8.1 18 Potassium 4.3 mEq/L 3.6-5.5 18 Globulin 2.4 g/dL 2.0-4.8 18 A/G Ratio 1.8 Calc 0.6-2.2 18 BUN/Creat Ratio 16.4 Calc 8.0-36.0 18 Lipid Profile 05/02/2008 Cholesterol 180 mg/dL 120-200 18 HDL 49 mg/dL 30-70 18 Triglycerides 71 mg/dL 30-200 18 HDL Risk Factor 3.6 CALC Low 4.2-7.0 18 LDL (Calculated) 116 CALC 0-129 18 VLDL (Calculated) 14 mg/dL 0-50 18 Laboratory test finding 05/02/2008 PSA 1.80 ng/mL 0.00-4.00 18 Lipid Profile 03/10/2008 Cholesterol 173 mg/dL 120-200 18 HDL 57 mg/dL 30-70 18 Triglycerides 73 mg/dL 30-200 18 HDL Risk Factor 3.0 CALC Low 4.2-7.0 18 LDL (Calculated) 102 CALC 0-129 18 VLDL (Calculated) 15 mg/dL 0-50 18 Comprehensive Metabolic Prof 03/10/2008 Albumin 4.0 g/dL 3.8-5.5 18 Alk. Phos. 70 U/L - 18 Alt (SGPT) 23 U/L 10-40 18 Ast (Sgot) 24 U/L 5-34 18 BUN 18 mg/dL 6-26 18 Calcium 8.9 mg/dL 8.6-10.2 18 Chloride 102 mEq/L 94-112 18 Creatinine 1.2 mg/dL 0.6-1.4 18 Carbon Dioxide 26 mEq/L 21-32 18 Glucose 94 mg/dL 70-105 18 Sodium 139 mEq/L 134-149 18 Total Bilirubin 0.5 mg/dL 0.2-1.3 18 Total Protein 6.4 g/dL 6.3-8.1 18 Potassium 4.3 mEq/L 3.6-5.5 18 Globulin 2.3 g/dL 2.0-4.8 18 A/G Ratio 1.7 Calc 0.6-2.2 18 BUN/Creat Ratio 14.7 Calc 8.0-36.0 18 Lipid Profile 11/05/2007 Cholesterol 266 mg/dL High 120-200 18 HDL 49 mg/dL 30-70 18 Triglycerides 107 mg/dL 30-200 18 HDL Risk Factor 5.4 CALC 4.2-7.0 18 LDL (Calculated) 195 CALC High 0-129 18 VLDL (Calculated) 21 mg/dL 0-50 18 Laboratory test finding 11/05/2007 PSA 2.10 ng/mL 0.00-4.00 18 Ict Hemoccult (Fma) 08/25/2007 Ict Hemoccult (1) NEG Ict Hemoccult-(2) NEG Ict-Hemoccult (3) NEG Lipid Profile 07/29/2007 Cholesterol 257 mg/dL High 120-200 18, 19 HDL 49 mg/dL 30-70 18 Triglycerides 77 mg/dL 30-200 18, 20 HDL Risk Factor 5.2 CALC 4.2-7.0 18 LDL (Calculated) 193 CALC High 0-129 18 VLDL (Calculated) 15 mg/dL 0-50 18 Comprehensive Metabolic Prof 07/29/2007 Albumin 4.0 g/dL 3.8-5.5 18 Alk. Phos. 70 U/L 22-95 18 Alt (SGPT) 18 U/L 10-40 18 Ast (Sgot) 18 U/L 5-34 18 BUN 20 mg/dL 6-26 18 Calcium 8.7 mg/dL 8.6-10.2 18 Chloride 102 mEq/L 94-112 18 Creatinine 1.3 mg/dL 0.6-1.4 18 Carbon Dioxide 27 mEq/L 21-32 18 Glucose 98 mg/dL 70-105 18 Sodium 138 mEq/L 134-149 18 Total Bilirubin 0.6 mg/dL 0.2-1.3 18 Total Protein 6.8 g/dL 6.3-8.1 18 Potassium 4.2 mEq/L 3.6-5.5 18 Globulin 2.8 g/dL 2.0-4.8 18 A/G Ratio 1.4 Calc 0.6-2.2 18 BUN/Creat Ratio 15.6 Calc 8.0-36.0 18 Laboratory test finding 07/29/2007 TSH 1.19 mIU/L 0.50-6.00 18 Laboratory test finding 07/29/2007 PSA 2.50 ng/mL 0.00-4.00 18 Complete Blood Count 07/29/2007 WBC 7.8 x10\\S\\3/uL 3.6-9.6 18 Gran# 5.5 x10\\S\\3/uL 1.5-7.2 18 Gran% 70.3 % 42.2-75.2 18 HCT 48 % 36-50 18 HGB 16.0 g/dL 12.1-17.2 18 Lymph# 1.8 x10\\S\\3/uL 0.7-4.9 18 Lymph% 22.7 % 20.5-51.1 18 MCH 30.9 pg 27.6-33.3 18 MCV 91.6 fL 82.2-97.4 18 MCHC 33.7 g/dL 33.0-35.5 18 Mo# 0.5 x10\\S\\3/uL 0.1-0.9 18 Mo% 7.0 % 1.7-9.3 18 MPV 7.7 fL 7.4-10.4 18 PLT 327 x10\\S\\3/uL 150-400 18 RBC 5.19 x10\\S\\6/uL 3.90-5.70 18 RDW 12.6 % 11.6-13.7 18 Ua - Non Micro (Fma) 07/21/2007 Appearance CLEAR Color LT YELLOW Glucose, Urine (Fma/CMC/CTX) NEG Bilirubin NEG Ketones NEG SP Grav 1.020 Blood NEG PH 5.5 Protein NEG Urobil 0.2 Nitrite NEG Leukocytes (Fma/CMC/Centrex) NEG Occult Blood (3) 11/12/2001 Occult Blood #1 NEG 11/08/01 Occult Blood #2 NEG 11/09/01 Occult Blood #3 NEG 11/10/01 Laboratory test finding 11/11/2001 PSA 1.60 0.0-4.0 Lipid Profile ([facility]) 11/11/2001 Cholesterol 243 mg/dL High 140-200 Triglyceride 78 mg/dL 30-150 VLDL 16 0-50 LDL-Calculated 167 High 0-160 HDL-Chol 60 30-70 Comp Metabolic ([facility]) 11/11/2001 Albumin 4.2 3.8-5.5 Alkaline Phosphatase 68 U/L 22-95 Bilirubin, Total 0.5 mg/dL 0.2-1.3 BUN 18 7-26 Calcium 9.5 mg/dL 8.6-10.0 Creatinine 1.1 mg/dL 0.6-1.4 Glucose 102 mg/dL 70 - 118 Ast Sgot 17 U/L 9-44 Alt (SGPT) 23 10-40 Total Protein 7.3 g/dL 6.4-8.3 Sodium 143 134-149 Potassium 4.8 3.6-5.5 Chloride 105 mEq/L 94-112 Co2 29 21-32 Globulin 3.1 2.0-4.8 Albumin / Globulin Ratio 1.4 0.6-2.2 BUN/Creatinin Ratio 16.4 8.0-36 CBC With Diff ([facility]) 11/11/2001 WBC 7.1 3.6-9.6 Lymphocytes 24.9 % 20.5 - 51.1 Monocytes 7.4 % 1.7-9.3 Granulocytes 67.7 % 42.2 - 75.2 Lymphocytes 1.8 10^3/uL 0.7 - 4.9 Monocytes 0.5 10^3/uL 0.1 - 0.9 Granulocytes 4.8 10^3/uL 1.5 - 7.2 RBC 5.27 3.90-5.70 Hemoglobin 16.1 g/dL 12.1 - 17.2 Hematocrit 48.0 % 36.1 - 50.3 Mean Corpuscular Vol 91.0 82.2-97.4 Mean Corpuscular Hemaglobin 30.6 27.6-33.3 Mean Corpuscular Hemo Concen 33.6 33.0-34.8 RDW 12.1 11.6-13.7 Platelets 281. 10^3/ul 150-400 Mean Platelet Volume 8.2 7.4-10.4 Ua - Non Micro ([facility]) 11/02/2001 Appearance CLOUDY YELLOW Glucose NEGATIVE Bilirubin NEGATIVE Ketones TRACE SP Grav >=1.030 Blood NEGATIVE PH 5.0 Protein NEGATIVE Urobil 0.2 Nitrite NEGATIVE Leukocytes NEGATIVE 1 FASTING 2 consistent w/ previous results 3 Acute inflammation: >10.00 4 Serologic response to B. burgdorferi infection is not detected, but cannot rule out early infection during which low or undetectable antibody levels to B. burgdorferi may be present. If clinically indicated, a new serum specimen should be submitted in 7-14 days. Test Performed by: [address] [address] 5 RESULTS VERIFIED BY REPEAT ANALYSIS 6 RESULTS VERIFIED BY REPEAT ANALYSIS 7 1 SST 8 Negative <0.91 Equivocal 0.91 - 1.09 Positive >1.09 9 Negative <0.80 Equivocal 0.80 - 1.19 Positive >1.19 IgM levels may peak at 3-6 weeks post infection, then gradually decline. 10 consistent w/ previous results 11 FASTING 12 result reckd' 13 Alexa ECLIA methodology. . According to the [place] [employer], Serum PSA should decrease and remain at undetectable levels after radical prostatectomy. The AUA defines biochemical recurrence as an initial PSA value 0.2 ng/mL or greater followed by a subsequent confirmatory PSA value 0.2 ng/mL or greater. Values obtained with different assay methods or kits cannot be used interchangeably. Results cannot be interpreted as absolute evidence of the presence or absence of malignant disease. 14 Alexa ECLIA methodology. 15 The table below lists the probability of prostate cancer for men with non-suspicious TINO results and total PSA between 4 and 10 ng/mL, by patient age (Heorn et al, GILMA 1998, 279:1542). % Free PSA 50-64 yr 65-75 yr 0.00-10.00% 56% 55% 10.01-15.00% 24% 35% 15.01-20.00% 17% 23% 20.01-25.00% 10% 20% >25.00% 5% 9% Please note: Heron et al did not make specific recommendations regarding the use of percent free PSA for any other population of men. 16 RESULT RAZ'D 17 FASTING 18 FASTING 19 RESULT VERIFIED BY REPEAT ANALYSIS 20 RESULT VERIFIED BY REPEAT ANALYSIS Procedures Date CPT Code Description Status 03/24/2018 52847 Electrocardiogram Complete Completed 09/24/2017 Colonoscopy Completed 06/27/2017 05642 CPHL SHQ Completed 06/27/2017 85504 Electrocardiogram Complete Completed 11/27/2015 42043 Electrocardiogram Complete Completed 04/04/2014 95612 Electrocardiogram Complete Completed 12/08/2012 38964 Electrocardiogram Complete Completed 06/07/2011 31792 Electrocardiogram Complete Completed 09/28/2007 Colonoscopy Completed 07/21/2007 63222 Electrocardiogram Complete Completed Encounters Type Date Location Provider CPT E/M Dx Office Visit 06/06/2017 9:40a [facility] Office Reyes Villanueva M.D. 85128 A69.20 Office Visit 11/27/2015 8:00a [facility] Office Reyes Villanueva M.D. 50683 Z23 E78.2 N40.0 I78.1 K21.9 M25.532 Z00.00 Office Visit 10/27/2015 11:20a [facility] Office Reyes Villanueva M.D. 21605 M25.532 Office Visit 06/05/2015 3:00p [facility] Office Reyes Villanueva M.D. 91214 719.46 272.4 Office Visit 02/10/2015 3:00p [facility] Office Miracle HumphreysLAIP 36525 214.1 272.4 Office Visit 04/04/2014 2:00p [facility] Office Reyes Villanueva M.D. 71481 272.4 600.00 448.1 530.11 V70.0 Office Visit 12/08/2012 2:40p [facility] Reyes Villanueva M.D. 63390 272.4 448.1 600.00 550.90 V70.0 V76.41 Office Visit 06/07/2011 8:00a [facility] Office Reyes Villanueva M.D. 37607 272.4 278.00 448.1 600.00 V70.0 V76.41 Office Visit 03/29/2011 3:30p [facility] Office Suzanne Foote M.D. 00752 524.60 Office Visit 11/30/2010 2:00p [facility] Office Reyes Villanueva M.D. 05278 465.9 Office Visit 07/16/2010 4:20p [facility] Office Reyes Villanueva M.D. 76904 272.4 530.11 448.1 719.49 600.00 V76.41 Office Visit 06/27/2009 8:20p Main Office Reyes Villanueva M.D. 51496 600.00 272.4 530.11 448.1 Office Visit 04/19/2009 4:15p [facility] Office Lindsey Liu, Afnp-C 80945 466.0 Office Visit 01/23/2009 10:45a Main Office Silvia Levi, Afnp-C 73798 530.11 Office Visit 09/26/2008 3:00p [facility] Reyes Villanueva M.D. 52563 381.01 448.1 600.00 272.4 V76.41 Office Visit 03/10/2008 9:20a [facility] Office Reyes Villanueva M.D. 10977 272.4 600.00 Office Visit 11/05/2007 10:00a [facility] Office Reyes Villanueva M.D. 04162 272.4 600.00 V76.44 Office Visit 07/21/2007 5:00p [facility] Office Reyes Villanueva M.D. 79761 786.50 272.4 V70.0 V76.41 600.00 448.1 Office Visit 07/05/2005 3:30p [facility] Office Reyes Villanueva M.D. 71539 724.5 Office Visit 06/12/2005 8:45a [facility] Ruddy Galicia M.D. 72276 724.5 Office Visit 02/15/2002 2:00p [facility] Reyes Villanueva M.D. 89309 Office Visit 11/02/2001 2:20p [facility] Reyes Villanueva M.D. 06836 Office Visit 10/28/2001 3:10p [facility] Reyes Villanueva M.D. 11326 Plan of Care 03/24/2018 - Reyes Villanueva M.D.E78.4 Other hyperlipidemiaNew Labs:Lipid Panel-ALL Lab CompaniesComp Metabolic-ALL Lab CompaniTSH (Fma/CMC/[facility]) Creatine Kin, Total (F/C/CTX)CBC Electronic-ALL Lab CompaniComments:continue present medication, Crestor 10 mg [id number] Benign prostatic hyperplasia without lower urinry tract sympNew Labs:PSA (ALL Lab Comp)Ua - Non Micro (Fma) Comments:The patient was advised to have yearly digital rectal exams, and a yearly psaM25.552 Pain in left hipNew Labs:Inr (Fma)PTTComments:I feel he is medically clear for the planned left hip replacement by Dr Gardner
--- OUTSIDE RECORDS SUMMARY | 2018-04-07 06:35 | XMS REPORT ---
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 Family History Date Family Member(s) Problem(s) Comments General Hypertension General Cancer Social History Type Date Description Comments Lives With spouse Occupation [employer] ETOH Use Drinks Alcoholic Beverages Occasionally Smoking Patient has never smoked Exercise Type/Frequency Does not exercise Allergies, Adverse Reactions, Alerts Date Description Reaction Status Severity Comments 12/11/2015 NKDA active Medications Medication Date Status Form Strength Qnty SIG Indications Ordering Provider Meloxicam Active Tablets 15mg 30tabs take 1 Rekha 018 tab by Emily Gardner mouth with food once a day Restasis Active Emulsion 0.05% Unknown 000 Ketoconazole Active Shampoo 2% apply Unknown 000 once a day to the scalp Zantac 75 Active Tablets 75mg Unknown 000 Tamsulosin HCL Active Unknown 000 Rosuvastatin Active Unknown Calcium 000 Multivitamin 00/00/0 Active Unknown 000 Analgesics as Active Unknown Needed 000 Mobic Hx Tablets 7.5mg 30tabs 1 by Rekha 016 - mouth Emily Gardner every 018 day Simvastatin Hx Tablets 20mg 1 by Blanche 000 - mouth every 018 day Vital Signs Date Vital Result Comment 03/25/2018 Height 69 inches 5'9" Weight 215.00 lb Heart Rate 88 /min BP Systolic 144 mmHg BP Diastolic 84 mmHg BMI (Body Mass Index) 31.7 kg/m2 02/02/2018 Height 69 inches 5'9" Weight 211.00 lb Heart Rate 59 /min BP Systolic 140 mmHg BP Diastolic 80 mmHg Respiratory Rate 18 /min Body Temperature 97.4 F Pain Level 4 BMI (Body Mass Index) 31.2 kg/m2 12/11/2015 Height 69.5 inches 5'9.50" Weight 205.00 lb Heart Rate 77 /min BP Systolic 135 mmHg BP Diastolic 78 mmHg BMI (Body Mass Index) 29.8 kg/m2 Results Description No Information Procedures Date CPT Code Description Status 07/27/2010 77905 Xray Knee 3 Views Completed 08/03/2007 78562 ECHO/Stress Completed 08/03/2007 32992 ECHO/Stress Completed 08/03/2007 25541 ECHO/Stress Completed 08/03/2007 75623 ECHO/Stress Completed 08/03/2007 94009 Stress Test Completed 08/03/2007 19057 Stress Test Completed Encounters Type Date Location Provider CPT E/M Dx Office Visit 02/02/2018 [facility] M.D. 74593 M16.12 10:00a [facility] M25.552 Office Visit 12/11/2015 10:00a [facility] Gretel Hammer, 42321 M19.041 Of CRebecca RPA-C Office Visit 07/27/2010 10:00a [facility] Adonis Patel M.D. 87624 719.46 Of C.MHoa 844.9 Office Visit 08/03/2007 11:20a [facility] Kathy Carbone, 42506 272.4 Emily 786.50 Office Visit 08/03/2007 11:00a [facility] ECHO Schedule 63218 272.4 786.50 Plan of Care Future Appointment(s):04/17/2018 2:30 pm - Rekha Gardner M.D. at [facility].04/07/2018 7:30 am - Vladimir Cespedes PA-C at [facility].04/07/2018 7:30 am - COMFORT Horton at [facility].04/07/2018 7:30 am - Rekha Gardner M.D. at [facility].03/25/2018 - Rekha Gardner M.D.M16.12 Unilateral primary osteoarthritis, left hipFollow up:10-14 days asyoakU21.552 Pain in left hip
[2018-04-07] MEDS ORDERED: Ondansetron ODT TAB* 4 MG ONE (06:55)
[2018-04-07] MEDS ORDERED: Famotidine TAB* 20 MG ONE (06:56)
[2018-04-07] MEDS ORDERED: Buffered Lidocaine 0.9% SYRIN* 5 ML/SYR SYRINGE ONE (06:56)
[2018-04-07] MEDS ORDERED: Dexamethasone TAB* 4 MG ONE (06:56)
[2018-04-07] MEDS ORDERED: Gabapentin CAP(*) 300 MG ONE (06:56)
[2018-04-07] MEDS ORDERED: ceFAZolin 2 GM PREMIX (*) 2 GM/50 ML BAG IVPB ONE (06:56)
[2018-04-07] MEDS ORDERED: fentaNYL* 50 MCG/ML 2 ML VIAL (100 MCG VIAL) ONE ×3 (07:24→11:55)
[2018-04-07] MEDS ORDERED: Midazolam* 1 MG/ML 10 ML VIAL (10 MG) ONE (07:25)
[2018-04-07] MEDS ORDERED: Phenylephrine INJ* 10 MG/ML 1 ML VIAL (10 MG) ONE (09:58)
[2018-04-07] MEDS ORDERED: Propofol* 500 MG/50 ML BTL ONE (09:58)
[2018-04-07] MEDS ORDERED: Labetalol IV* 5 MG/ML 20 ML VIAL ONE (09:58)
[2018-04-07] MEDS ORDERED: Lidocaine 2% PF * 5 ML VIAL ONE (09:58)
[2018-04-07] MEDS ORDERED: Bupivacaine 0.25% SDV* 30 ML ONE (10:02)
[2018-04-07] MEDS ORDERED: Bupivacaine 0.5% PF 10 ML VIAL INJ ONE (10:02)
[2018-04-07] MEDS ORDERED: Metoprolol Tartrate IV* 1 MG/ML 5 ML VIAL ONE (10:16)
[2018-04-07] MEDS ORDERED: hydrALAZINE IV* 20 MG/ML VIAL ONE (10:16)
[2018-04-07] MEDS ORDERED: oxyCODONE TAB* 5 MG TAB PO PRN (10:58)
[2018-04-07] MEDS ORDERED: Magnesium Hydroxide LIQ* 30 ML UDC PO PRN (10:58)
[2018-04-07] MEDS ORDERED: Acetaminophen TAB* 325 MG PO PRN (10:58)
[2018-04-07] MEDS ORDERED: diPHENhydraMINE IV* 50 MG/ML 1 ml VIAL (BENADRYL) IV PRN (10:58)
[2018-04-07] MEDS ORDERED: Bisacodyl SUPP* 10 MG SUPP PR PRN (10:58)
[2018-04-07] MEDS ORDERED: Morphine VIAL* 4 MG/ML VIAL (1 ml vial) IV PRN (10:58)
[2018-04-07] MEDS ORDERED: Ondansetron INJ* 2 MG/ML VIAL IV PRN (10:58)
[2018-04-07] MEDS ORDERED: oxyCODONE/Acetamin 5/325 MG* TAB PO PRN (10:58)
[2018-04-07] MEDS: fentaNYL* 50 MCG/ML 2 ML VIAL (100 MCG VIAL) IV PRN ×5 (11:22→11:55)
[2018-04-07] MEDS ORDERED: oxyCODONE/Acetamin 5/325 MG* TAB ONE (11:41)
--- NOTE | 2018-04-07 11:57 | RAD ---
HISTORY: Status post left hip arthroplasty COMPARISONS: February 02, 2018 VIEWS: 3, Frontal view of the pelvis with frontal and crosstable lateral views of the left hip FINDINGS: BONE DENSITY: Normal. BONES: The patient is status post left hip arthroplasty. There is no hardware failure or osteolysis. JOINTS: The patient is status post left hip arthroplasty. There is moderate osteoarthritis of the right hip. ALIGNMENT: There is no dislocation. SOFT TISSUES: Unremarkable. OTHER FINDINGS: None. IMPRESSION: STATUS POST LEFT HIP ARTHROPLASTY
--- NOTE | 2018-04-07 11:59 | RAD ---
HISTORY: Left hip replacement COMPARISONS: February 02, 2018 VIEWS: 1, portable intraoperative view of the pelvis or hip arthroplasty FINDINGS: A single portable view of the pelvis to hip arthroplasty demonstrates a left hip arthroplasty with a temporary femoral sizing component. IMPRESSION: LIMITED PORTABLE VIEW OF THE PELVIS DURING HIP ARTHROPLASTY.
[2018-04-07] MEDS ORDERED: oxyCODONE TAB* 5 MG TAB ONE (13:28)
[2018-04-07] MEDS: Tamsulosin CAP* 0.4 MG PO SCH (16:30)
[2018-04-07] MEDS: Atorvastatin* 20 MG TAB PO SCH (16:30)
[2018-04-07] MEDS: oxyCODONE/Acetamin 5/325 MG* TAB PO PRN ×2 (16:30→21:05)
[2018-04-07] MEDS: ceFAZolin 1 GM in Dextrose (*) 1 GM/50 ML BAG IVPB SCH (16:32)
[2018-04-07] MEDS ORDERED: Warfarin TAB(*) 6 MG PO ONE (17:00)
[2018-04-07] MEDS: Docusate CAP* 100 MG PO SCH (21:05)
[2018-04-07] MEDS: Magnesium Hydroxide LIQ* 30 ML UDC PO SCH (21:05)
[2018-04-07] MEDS: CMC:Cyclosporine 0.05% OPHTH (NF) 0.4 ML VIAL BOTH EYES SCH (21:08)
[2018-04-08] MEDS: ceFAZolin 1 GM in Dextrose (*) 1 GM/50 ML BAG IVPB SCH ×2 (00:22→08:10)
[2018-04-08] MEDS: oxyCODONE/Acetamin 5/325 MG* TAB PO PRN ×5 (03:14→20:41)
[2018-04-08 05:51] LABS: Hematocrit 33 % (42-52); Hemoglobin 11.4 g/dl (14.0-18.0); Mean Platelet Volume 7.4 um3 (7.4-10.4); Platelet Count 223 10^3/ul (150-450)
[2018-04-08 05:59] LABS: INR 1.05 (0.77-1.02)
[2018-04-08] MEDS: BIO TEARS PO SCH (08:12)
[2018-04-08] MEDS: CMC:Cyclosporine 0.05% OPHTH (NF) 0.4 ML VIAL BOTH EYES SCH ×2 (08:12→20:42)
[2018-04-08] MEDS: Vitamin THERAPEUTIC TAB PO SCH (08:13)
[2018-04-08] MEDS: Magnesium Hydroxide LIQ* 30 ML UDC PO SCH ×2 (08:13→20:41)
[2018-04-08] MEDS: Docusate CAP* 100 MG PO SCH ×2 (08:13→20:41)
--- NOTE | 2018-04-08 08:48 | OP ---
DATE OF OPERATION: 04/07/18 - ROOM #347 DATE OF : 50 SURGEON: Rekha Gardner MD CONSOLIDATION ACCOUNTANT: COMFORT Ramos. Mr. Cespedes did help throughout the procedure with preparation of the leg, wound retraction, manipulation of the hip, and wound closure. ANESTHESIOLOGIST: Uche Ontiveros MD ANESTHESIA: Spinal. PRE-OP DIAGNOSIS: Severe end-stage degenerative osteoarthritis of the left hip joint. POST-OP DIAGNOSIS: Severe end-stage degenerative osteoarthritis of the left hip joint. OPERATIVE PROCEDURE: Left total hip arthroplasty. INDICATIONS: Mr. Hudson is a 67-year-old gentleman with years of increasingly severe left hip pain. He failed conservative treatment with antiinflammatories , pain medication, and physical therapy. Radiographs showed [id number] arthritis. Due to continued pain and decreased quality of life, he elected to undergo left total hip arthroplasty. Informed consent was obtained from the patient. He understood the risks of the surgery included, but were not limited to, bleeding, infection, damage to nearby structures, continued pain, need for further surgery, intraoperative fracture, nerve palsy, hardware failure or loosening, dislocation, leg length discrepancy, stroke, heart attack, blood clot , and . He wished to proceed. COMPLICATIONS: None. ESTIMATED BLOOD LOSS: 300 cc. SPECIMENS: Femoral head and acetabular reamings sent to Pathology. HARDWARE USED: This is uncemented Erika total hip arthroplasty hardware. For the cup, a Trident 52E acetabular shell, a single 16-mm bone screw was used. For the liner, a Trident X3 0-degree polyethylene insert 36E. For the stem, an Accolade TMZF size 3 with a 127-degree neck. For the head, a Biolox delta 36 +2.5 ceramic V40 femoral head. INTRAOPERATIVE FINDINGS: Intraoperatively, the patient was noted to have severe end-stage arthritis with complete loss of cartilage along the femoral head and acetabulum. DESCRIPTION OF PROCEDURE: Mr. Hudson was identified in the preanesthesia unit. His left lower extremity was marked as the correct operative side. Informed consent was signed and placed in the chart. The patient was taken to the operating room and placed under spinal anesthesia. A Beltrán catheter was placed. The patient was placed in the right lateral decubitus position on the peg board. All bony prominences were well padded. Left lower extremity was prepped and draped in the usual sterile fashion. Preop time-out was made to correctly identify the patient's side and site. Appropriate perioperative antibiotics were given within 1 hour of incision. A 12-cm posterior hip incision was made with a 10 blade and carried down to the lateral fascial layer. Lateral fascial layer was then incised in line with the skin incision. Charnley retractor was placed. The piriformis and conjoint tendons were identified. These were elevated off the posterolateral femur using electrocautery and tagged with #5 Ethibond. Next, electrocautery was used to make a capsular flap and this was also tagged with #5 Ethibond. The hip was carefully dislocated. Lesser troch to the center of the femoral head measured 58 mm. Oscillating saw was used to make the appropriate femoral neck cut. The femoral head was carefully removed. The femur was retracted anteriorly. After appropriate placement of retractors, the acetabulum was well visualized. Long-handled knife was used to sharply remove any remaining labrum from the acetabular rim. The acetabulum was sequentially reamed up to a size 51. 51 trial had excellent fit with appropriate anteversion and abduction angle. Final implant chosen was a Trident 52E hemispherical shell. This was impacted into the acetabulum on to subchondral bleeding bone. There was excellent stability. A single 16-mm screw was placed in the superior posterior quadrant for extra stability. Trident X3 0-degree 36E polyethylene liner. This was impacted into the acetabulum. Stability of the liner was checked and rechecked and noted to be stable. Next, attention was turned to preparation of the femur. A canal finder was used to enter the proximal femur. The femur was sequentially broached up to a size 3. The size 3 broach had good fit with appropriate anteversion. A 127- degree neck trial was chosen with 36 +0 head trial. Lesser troch to the center of the femoral head measured 56 mm. Therefore, a +2.5 head was chosen. Hip was reduced and taken through a range of motion. The hip was stable in all positions. There were appropriate soft tissue tension and leg lengths. The hip was carefully dislocated. All trials were removed. Final implant chosen was an Accolade TMZF size 3 with a 127-degree neck. This was impacted into the femoral canal without difficulty. There was good implant stability and appropriate anteversion. A Biolox ceramic V40 femoral head +2.5 was chosen as the final head. This was impacted on to the femoral neck. Lesser troch to the center of the femoral head measured 59 mm. The hip was reduced and taken through a range of motion. The hip was stable in all positions. There was appropriate soft tissue tension and leg lengths. The previously tagged capsule and tendons were reapproximated to the posterolateral femur through 2 trochanteric drill holes. The lateral fascial layer was closed using interrupted #1 Vicryls. The rest of the incision was closed in a layered fashion using 0 and 2-0 Vicryls. Skin was closed using running 3-0 Monocryl and Dermabond. Sterile Adaptic, 4x4s, and paper tape were used to cover the incision. The patient's anesthesia was reversed without difficulty. He was taken to the PACU in stable condition. Intended weight bearing will be weight bearing as tolerated. Intended DVT prophylaxis will be Coumadin with a Lovenox bridge. [id number]/[facility] #: [id number] JORDYN
[2018-04-08] MEDS: Enoxaparin(*) 40 MG/0.4 ML SYR SUBCUT SCH (11:43)
--- NOTE | 2018-04-08 15:03 | PN ---
Progress Note - Progress Note Date of Service: 04/08/18 SOAP: Subjective: []Patient seen at bedside. He feels very well and denies left hip pain, chest pain, shortness of breath, dizziness, nausea. Participate with PT, progressing well towards goals and intends to go home tomorrow. Objective: [] Vital Signs Temp 98.8 F 04/08/18 11:18 Pulse 91 04/08/18 11:18 Resp 18 04/08/18 11:42 BP 137/50 04/08/18 11:18 Pulse Ox 97 04/08/18 11:18 Intake & Output 04/07/18 04/08/18 04/08/18 18:59 06:59 18:59 Intake Total 2831 1763 1765 Output Total 350 1800 400 Balance 2481 -37 1365 Intake: IV Fluids 2417 763 1035 Cefazolin 55 LR 2417 763 980 IVPB 54 Cefazolin 54 Oral 360 1000 730 Output: Urine 50 400 Beltrán 325 1750 Residual 25 Beltrán 16 Fr 25 Laboratory Last Values Hgb 11.4 g/dl (14.0-18.0) L 04/08/18 05:33 Hct 33 % (42-52) L 04/08/18 05:33 Plt Count 223 10^3/ul (150-450) 04/08/18 05:33 MPV 7.4 um3 (7.4-10.4) 04/08/18 05:33 INR (Anticoag Therapy) 1.05 (0.77-1.02) H 04/08/18 05:33 Sodium 135 mmol/L (139-145) L 04/08/18 05:33 Potassium 4.1 mmol/L (3.5-5.0) 04/08/18 05:33 Chloride 104 mmol/L (101-111) 04/08/18 05:33 Carbon Dioxide 27 mmol/L (22-32) 04/08/18 05:33 Anion Gap 4 mmol/L (2-11) 04/08/18 05:33 BUN 18 mg/dL (6-24) 04/08/18 05:33 Creatinine 0.93 mg/dL (0.67-1.17) 04/08/18 05:33 Est GFR ( Amer) 104.2 (>60) 04/08/18 05:33 Est GFR (Non-Af Amer) 81.0 (>60) 04/08/18 05:33 BUN/Creatinine Ratio 19.4 (8-20) 04/08/18 05:33 Glucose 129 mg/dL (70-100) H 04/08/18 05:33 Calcium 8.6 mg/dL (8.6-10.3) 04/08/18 05:33 General: Well appearing, NAD LLE: Left hip dressing CDI without surrounding erythema. Thigh is soft and nontender. DF/PF intact. Sensation intact distally. Capillary refill less than than two seconds distally. BL LE: Calves supple and nontender without erythema, edema or palpable cords Assessment: []POD 1 sp left total hip arthroplasty Plan: []WBAT PT/OT Lovenox, coumadin 8 mg today Plan for stairs with 1 railing with PT tomorrow then home
[2018-04-08] MEDS: Atorvastatin* 20 MG TAB PO SCH (16:58)
[2018-04-08] MEDS: Tamsulosin CAP* 0.4 MG PO SCH (16:58)
[2018-04-08] MEDS ORDERED: Warfarin TAB(*) 4 MG PO ONE (17:00)
[2018-04-09] MEDS: oxyCODONE/Acetamin 5/325 MG* TAB PO PRN ×2 (04:00→08:34)
[2018-04-09 05:27] LABS: Hematocrit 33 % (42-52); Hemoglobin 11.2 g/dl (14.0-18.0); Mean Platelet Volume 7.4 um3 (7.4-10.4); Platelet Count 203 10^3/ul (150-450)
[2018-04-09 05:36] LABS: INR 1.14 (0.77-1.02)
[2018-04-09] MEDS: Magnesium Hydroxide LIQ* 30 ML UDC PO SCH (08:30)
[2018-04-09] MEDS: CMC:Cyclosporine 0.05% OPHTH (NF) 0.4 ML VIAL BOTH EYES SCH (08:33)
[2018-04-09] MEDS: Docusate CAP* 100 MG PO SCH (08:34)
[2018-04-09] MEDS: Vitamin THERAPEUTIC TAB PO SCH (08:34)
[2018-04-09] MEDS: BIO TEARS PO SCH (08:35)
[2018-04-09] MEDS: Enoxaparin(*) 40 MG/0.4 ML SYR SUBCUT SCH (11:21)
[2018-04-09 12:22] VITALS: BP 146/51
--- NOTE | 2018-04-09 16:13 | PN ---
Progress Note - Progress Note Date of Service: 04/09/18 SOAP: Subjective: []Patient seen OOB in chair. He felt sore with PT but participate well. Denies CP, SOB, dizziness, nausea or leg numbness. Objective: [] Vital Signs Temp 99.6 F 04/09/18 11:16 Pulse 91 04/09/18 11:16 Resp 17 04/09/18 11:16 BP 146/51 04/09/18 11:16 Pulse Ox 96 04/09/18 11:16 Intake & Output 04/08/18 04/09/18 04/09/18 18:59 06:59 18:59 Intake Total 2565 1980 320 Output Total 800 900 575 Balance 1765 1080 -255 Intake: IV Fluids 1035 Cefazolin 55 LR 980 Oral 1530 1980 320 Output: Urine 800 900 575 Other: # Bowel Movements 0 1 Estimated Stool Amount Large Laboratory Last Values Hgb 11.2 g/dl (14.0-18.0) L 04/09/18 05:05 Hct 33 % (42-52) L 04/09/18 05:05 Plt Count 203 10^3/ul (150-450) 04/09/18 05:05 MPV 7.4 um3 (7.4-10.4) 04/09/18 05:05 INR (Anticoag Therapy) 1.14 (0.77-1.02) H 04/09/18 05:05 Sodium 135 mmol/L (139-145) L 04/08/18 05:33 Potassium 4.1 mmol/L (3.5-5.0) 04/08/18 05:33 Chloride 104 mmol/L (101-111) 04/08/18 05:33 Carbon Dioxide 27 mmol/L (22-32) 04/08/18 05:33 Anion Gap 4 mmol/L (2-11) 04/08/18 05:33 BUN 18 mg/dL (6-24) 04/08/18 05:33 Creatinine 0.93 mg/dL (0.67-1.17) 04/08/18 05:33 Est GFR ( Amer) 104.2 (>60) 04/08/18 05:33 Est GFR (Non-Af Amer) 81.0 (>60) 04/08/18 05:33 BUN/Creatinine Ratio 19.4 (8-20) 04/08/18 05:33 Glucose 129 mg/dL (70-100) H 04/08/18 05:33 Calcium 8.6 mg/dL (8.6-10.3) 04/08/18 05:33 General: Well appearing, NAD LLE: Left hip dressing changed, incision with well approximated edges, CDI without surrounding erythema. Thigh is soft and nontender. DF/PF intact. Sensation intact distally. Capillary refill less than than two seconds distally. BL LE: Calves supple and nontender without erythema, edema or palpable cords Assessment: []POD 2 sp left total hip arthroplasty Plan: []WBAT PT/OT Lovenox, coumadin 8 mg today PT goals met, DC home
[2018-04-10] MEDS ORDERED: Scopolamine PATCH Remove* 1 NOTE MISC PATCH OFF ONE (05:43)
--- NOTE | 2018-04-10 08:54 | DS ---
DISCHARGE SUMMARY: DATE OF ADMISSION: 04/07/18 DATE OF DISCHARGE: 04/09/18 PROVIDER: Dr. Rekha Gardner. * (DICTATED BY COMFORT MANZO) VICE PRINCIPAL: COMFORT Ramos PRE-OP DIAGNOSIS: Severe end-stage degenerative osteoarthritis of the left hip joint. OPERATIVE PROCEDURE: Left total hip arthroplasty. HISTORY: Mr. Hudson is a 67-year-old gentleman with years of increasingly severe left hip pain. He failed conservative treatment with anti-inflammatories , pain medication, physical therapy. Radiographs showed [id number] arthritis. Due to continued pain and decreased quality of life, he elected to undergo a left total hip arthroplasty. HOSPITAL COURSE: The patient was admitted to [facility] on . He underwent a left total hip arthroplasty without complication. He recovered briefly in the PACU and then was taken to the short-stay surgical unit in stable condition. Postop day 1, he was well appearing, in no acute distress. Left hip dressing was clean, dry, and intact without surrounding erythema. Thigh soft and nontender. Dorsiflexion and plantar flexion intact. Sensation intact distally. Capillary refill less than 2 seconds distally. Calf supple, nontender without erythema, edema, or palpable cords. Postop day 2, he again was well appearing and in no acute distress. Left hip dressing was changed. Incision was well approximated. Edges clean, dry, and intact without surrounding erythema. Thigh soft and nontender. Dorsiflexion and plantar flexion intact. Sensation intact distally. Capillary refill less than 2 seconds distally. Calf supple and nontender without erythema, edema, or palpable cords. Physical therapy goals were met and the patient was deemed to be medically and orthopedically stable for discharge home. His hemoglobin was 11.2, hematocrit 33. INR 1.14. Vital Signs: Temperature 99.6, pulse 91, respiratory rate 17, blood pressure 146/51, pulse ox 96%. DISCHARGE MEDICATIONS: 1. Multivitamin 1 tab p.o. q.a.m. 2. Zantac 75 mg p.o. daily p.r.n. 3. Glucosamine and fish oil 1 cap p.o. q.a.m. 4. Restasis 0.05% ophthalmic 1 drop both eyes b.i.d. 5. Tamsulosin 0.4 mg p.o. q.p.m. 6. Biotears 2 caps p.o. q.a.m. 7. Meloxicam was discontinued at home. 8. Rosuvastatin 10 mg p.o. q.p.m. New medications: 1. Acetaminophen 650 mg p.o. q.4 hours p.r.n. 2. Docusate 100 mg p.o. b.i.d. 3. Percocet 5/325 one to two tabs every 4 to 6 hours p.r.n., max daily dose of 10. 4. Warfarin 2 mg tabs, take 1 to 3 tabs daily depending on INR value. DISCHARGE INSTRUCTIONS: Weightbearing as tolerated. Continue hip precautions. Home nurse to do wound checks and INR draws. Coumadin dosin04/09/18, 8 mg; 04/10/18, 4 mg; 04/11/18 and 04/12/18, take 2 mg daily; 04/13/18, recheck INR for further dosing instructions. He will take Percocet 5/325 one to two tabs by mouth every 4 to 6 hours as needed for pain, max daily dose of 10 tabs per day. Follow up with Dr. Gardner in 10 to 14 days. Call for an appointment. COMFORT MANZO [id number]/[facility] #: [id number] MTDD
== END 2018-04-09 12:45 | disposition home health service (06) | DRG 470 ==
LOC: AA 06:26 → SSU 12:15
PROVIDERS: ADMIT Orthopaedic Surgery Adult Reconstructive Orthopaedic Surgery; ATTEND Orthopaedic Surgery Adult Reconstructive Orthopaedic Surgery
PROC: 0SRB04A Replacement of Left Hip Joint with Ceramic on Polyethylene Synthetic Substitute, Uncemented, Open Approach (ICD-10-PCS; principal; 2018-04-07 08:00)
DX: M16.12 Unilateral primary osteoarthritis, left hip (principal); E78.00 Pure hypercholesterolemia, unspecified; K21.9 Gastro-esophageal reflux disease without esophagitis; I34.1 Nonrheumatic mitral (valve) prolapse; N40.0 Benign prostatic hyperplasia without lower urinary tract symptoms; L82.1 Other seborrheic keratosis; D23.9 Other benign neoplasm of skin, unspecified; Z82.61 Family history of arthritis; E66.3 Overweight; Z68.31 Body mass index [BMI] 31.0-31.9, adult; Z79.01 Long term (current) use of anticoagulants; Z80.3 Family history of malignant neoplasm of breast; Z82.49 Family history of ischemic heart disease and other diseases of the circulatory system; Z72.89 Other problems related to lifestyle; Z80.8 Family history of malignant neoplasm of other organs or systems
CPT/HCPCS: 36415; 80048; 85014; 85018; 85049; 85610; 88304; 88311; A9270-GY; C1713; C1776; G8978-GP-CI; G8979-GP-CH; G8987-GO-CI; G8988-GO-CI; G8989-GO-CI; J0360; J0690; J1650; J2250; J2704; J3010; J3490; J8540